=== PATIENT | female | born 1960 | race Caucasian/White ===

== ENCOUNTER 2021-03-29 04:50 | Day surgery (SDC) | payer OTHER ==
[2021-03-29 07:30] VITALS: BMI 23.4
[2021-03-29 08:37] VITALS: TEMP 97.7
[2021-03-29 09:05] VITALS: PULSE 69
[2021-03-29 09:16] VITALS: BP 131/78
== END 2021-03-29 09:15 | disposition home or self-care (01) ==
LOC: JASU-ENDO 04:50
PROVIDERS: ATTEND Internal Medicine Gastroenterology
PROC: 0DBM8ZX Excision of Descending Colon, Via Natural or Artificial Opening Endoscopic, Diagnostic (ICD-10-PCS; principal; 2021-03-29 08:15)
DX: Z12.11 Encounter for screening for malignant neoplasm of colon (principal); D12.4 Benign neoplasm of descending colon; K64.8 Other hemorrhoids
CPT/HCPCS: 88305-TC